=== PATIENT | male | born 2000 | race Caucasian/White ===

== ENCOUNTER → 2022-10-01 | Outpatient (CLI) | payer SELFPAY, OTHER ==
--- NOTE | 2022-10-01 08:49 | CT_ITS ---
STUDY: CT UPPER EXTREMITY WITHOUT CONTRAST. LEFT REASON FOR EXAM: Male, 22 years old. FRACTURE RADIATION DOSAGE (If Supplied By Facility): CTDIvol = ( 24.58 ) mGy, DLP = ( 511.44 ) mGycm. Individualized dose optimization techniques were used for this CT.? FLUOROSCOPY TIME (if supplied): ( ) minutes/seconds TECHNIQUE: Multiple axial images of the left upper extremity were obtained evaluate for fracture. COMPARISON: None. FINDINGS: There is a visualized large joint effusion. There is a fracture of the coronoid process. There is a comminuted fracture of the head of the radius with the fracture fragments extending laterally and inferiorly. There is visualized soft tissue edema. CT/Extremity Upper without Contra IMPRESSION: There is an acute displaced possible entrapped focus of fragments from the superior aspect of the proximal radius with the fragments are sitting below and lateral to the radius. Nondisplaced fracture of the right coronoid. There is a nonspecific sclerotic density in the ulna. Small to moderate joint effusion. Electronically Signed: Jenifer Jennings MD at 6:35 EST ,
== END | disposition home or self-care (01) ==
PROVIDERS: PCP Family Medicine; Referring Provider Student in an Organized Health Care Education/Training Program; Visit Provider Student in an Organized Health Care Education/Training Program
DX: S52.122A Displaced fracture of head of left radius, initial encounter for closed fracture (principal); X58.XXXA Exposure to other specified factors, initial encounter
CPT/HCPCS: 73200

== ENCOUNTER → 2022-11-16 | Outpatient (CLI) | payer OTHER, SELFPAY | END | disposition home or self-care (01) | PROVIDERS: PCP Family Medicine; Referring Provider Student in an Organized Health Care Education/Training Program; Visit Provider Student in an Organized Health Care Education/Training Program | DX: T84.038D Mechanical loosening of other internal prosthetic joint, subsequent encounter (principal) | CPT/HCPCS: 87070; 87075; 87077; 87186; 87205 ==

== ENCOUNTER 2022-12-15 14:17 | Observation (INO) | payer SELFPAY, OTHER ==
[2022-12-15] VITALS (10 sets, daily range): BP systolic 106–119; BP diastolic 61–84; PULSE 64–100; RESP 16–18; TEMP 36.1–36.8; O2SAT 94–100; BMI 35.4
[2022-12-15] MEDS: Lactated Ringers 1,000 ML 15 ML IV ×2 (11:12→13:30)
[2022-12-15] MEDS: Cefazolin 2 GM in 0.9% Normal Saline 100 ML IV (13:03)
[2022-12-15] MEDS: Bupivacaine Mpf 0.5% 30 ML VIAL (13:52)
--- NOTE | 2022-12-15 17:37 | OP.PCM_ITS ---
Report of Operation Date of Procedure: 12/15/22 Description of Surgical Findings:: Preoperative diagnosis: Presumed superficial left elbow radial head arthroplasty wound infection Postoperative diagnosis: Superficial left radial head arthroplasty wound infection Procedure: Left radial head arthroplasty irrigation and debridement Primary Surgeon: Gallo Merrill DO Anesthesia: General LMA Inspector Eyeglass: Haylie Olivas CRNA Estimated blood loss: 100 cc IV fluids: 1200 cc crystalloid Specimen: Superficial and deep cultures Complications: None apparent Intraoperative findings: Phlegmon like tissue found in the subcutaneous plane adjacent to a FiberWire suture used to close the joint capsule. Intra-articular fluid was sanguinous without gross purulence. Stable radial head arthroplasty Packing/drains: None Implants: None Preoperative indications: This is an otherwise healthy 22-year-old male who sustained a trauma to his left elbow approximately 2.5 months ago. He sustained a comminuted left radial head fracture. A left radial head ORIF was performed on 10/05/2022. Postoperative films at 2 weeks revealed loss of fixation and he was converted to a left radial head arthroplasty on 11/01/2022. There were no signs or symptoms of infection at time of radial head arthroplasty. At his [facility] postop visit 2 weeks postoperatively following the arthroplasty, purulence was noted around the skin sutures. He was started on oral antibiotics at that time and cultures were obtained in the office. An intra-articular arthrocentesis was performed in the office with a dry tap, avoiding the cellulitic skin. Wound cultures returned with Pseudomonas aeruginosa. He was transitioned to ciprofloxacin which appeared to improve erythema around the wound but purulence persisted. The wound slowly closed and was closed today except for a small pinpoint wound in the central portion of the surgical wound. Given the metallic hardware in the joint, and persistent wound with purulent drainage, I elected to proceed with irrigation and debridement of the left elbow after seeing the patient in the office last week. I was also concerned for continued ciprofloxacin for extended periods of time due to risk of tendon rupture. His elbow range of motion was improving over the last few weeks with physical therapy and he had very little pain. My suspicion was that the infection was superficial as he had no symptoms of a septic joint. He agreed to proceed with the irrigation and debridement. The risks of the procedure reviewed with patient at length. Risks included but were not limited to bleeding, infection, loss of life or limb, need for additional surgery, persistent pain, instability of the elbow, nonhealing wounds, stiffness, neurovascular injury. Patient expressed understanding of these risks and wished to proceed with surgery. Informed sent was obtained in the office. Description of procedure: Patient was identified in the preoperative holding area by name, medical record number, date of . The operative extremity was marked. All questions answered to patient satisfaction. At time of his procedure, patient brought the operative suite positioned supine a standard operating table. General anesthesia was induced and laryngeal mask airway placed. All bony prominences were well-padded. A hand table was attached to the patient's left side. We then prepped and draped the left upper extremity in normal, sterile orthopedic fashion with a ChloraPrep. We then performed timeout with all parties in attendance in agreement with the side, site, operation to be performed. No concerns were voiced elected proceed with surgery. 2 g Ancef was administered prior to the incision by anesthesia staff. Skin was sharply incised with a 10 blade scalpel. Superficial phlegmon was encountered adjacent to the pinpoint wound. Superficial cultures were obtained. Superfic ial hemostasis was achieved with Bovie cautery. A FiberWire suture which was used to close the joint capsule and intramuscular interval was a point of concern as redundant suture was noted. The interval was closed and healed. There was no obvious communication with the joint capsule. I closely inspected this for any signs of communicating situs. I then debrided the phlegmon tissue and any necrotic appearing tissue sharply. FiberWire suture was removed. I thoroughly irrigated the subcutaneous plane with 3 L of normal saline solution via cystoscopy tubing. I then changed my gloves and utilized new sterile instruments. I utilized the prior interval and made a small 2 cm arthrotomy to reveal the radial head implant. Bloody fluid was noted within the joint without any purulence. The radial head arthroplasty appeared stable without any signs of loosening. I then thoroughly irrigated the joint with 3 additional liters of normal saline solution via cystoscopy tubing. I then placed 0.6 g of tobramycin powder inside the joint to cover the Pseudomonas. The joint was then closed in a watertight fashion with a barbed strata fix PDS suture. Superficial layer was then addressed. I placed the remaining 0.6 g of tobramycin powder in the subcutaneous field. Skin edges were debrided sharply with 15 blade scalpel. I closed the dermis in interrupted buried fashion with 3-0 Vicryl suture. Skin was finally reapproximated with interrupted horizontal mattress 2-0 nylon suture. A sterile compression dressing was applied. Patient was placed in a simple sling. He was safely extubated in the operative suite and transferred to PACU in stable condition. Postoperative plan: Patient will be placed in observation overnight. Infectious disease has been consulted for antibiotic recommendations. I will provisionally placed the patient on IV Zosyn and tobramycin. We will follow intraoperative cultures to ensure no change in etiologic organism. He may perform range of motion activities as tolerated in hopes to regain range of motion to his left elbow. Oxycodone ordered for pain regimen. Aspirin 81 mg twice daily for DVT prophylaxis. Ice the operative site. Discharge pending recommendations from infectious disease.
[2022-12-15] MEDS: Meloxicam 15 MG Tablet PO (18:49)
[2022-12-15] MEDS: Acetaminophen 500 MG Tablet 1000 MG PO (21:37)
[2022-12-16 00:42] VITALS: BP 103/57; PULSE 76; RESP 16; TEMP 36.7; O2SAT 94
[2022-12-16 04:56] VITALS: BP 102/54; PULSE 64; RESP 16; TEMP 36.6; O2SAT 95
[2022-12-16] MEDS: Acetaminophen 500 MG Tablet 1000 MG PO (05:05)
--- NOTE | 2022-12-16 06:45 | PN.ORTHO_ITS ---
Subjective Subjective Patient seen and examined. Denies any new complaints. Reports moderate pain in the surgical site, otherwise denies new symptoms. Denies fevers, chills, nausea vomiting, chest pain or shortness of breath. Objective Data Objective Data Vital Signs: Vital Signs Temp Pulse Resp BP Pulse Ox O2 Del Method O2 Flow Rate 97.8 F 64 16 102/54 L 95 Room Air 2 12/16/22 04:56 12/16/22 04:56 12/16/22 04:56 12/16/22 04:56 12/16/22 04:56 12/16/22 04:56 12/15/22 14:15 Oxygen Flow Rate (L/min) 2 Oxygen Delivery Method Room Air Weight: 253 lb 15.983 oz Body Mass Index (BMI) 35.4 Intake & Output: Intake and Output for Last 24 Hours 12/14/22 12/15/22 12/16/22 23:59 23:59 23:59 Intake Total 1219.5 / 1219.5 384.75 / 384.75 Output Total 400 / 400 Balance 819.5 / 819.5 384.75 / 384.75 Lab / Micro Data Micro: Microbiology 12/15/22 13:39 Incision/Surgical Site Gram Stain - Final 12/15/22 13:37 Incision/Surgical Site Gram Stain - Final Physical Exam Narrative General - A&Ox3, NAD. VSS/AF. Left upper Extremity - SILT & 5/5 in radial, ulnar, musculocutaneous, axillary, and median nerve distributions. Radial, ulnar pulses 2+. Compartments soft and compressible. BCR in finger tips. Incisional dressing C/D/I. Assessment & Plan Assessment/Plan (1) Infection of left elbow: PLAN: POD#1 s/p irrigation and debridement left radial head arthroplasty - Pain control -Tobramycin and Zosyn ordered for double coverage of Pseudomonas. Cultures pending from surgery. Infectious disease has been consulted. Appreciate r ecommendations regarding oral antibiotics versus PICC line discharge requirements. -Range of motion as tolerated left upper extremity, weightbearing less than 3 pounds - DVT PPX -aspirin 81 mg twice daily, SCDs, early mobilization - Case management - D/C planning
[2022-12-16 08:50] VITALS: BP 107/54; PULSE 71; RESP 16; TEMP 36.9; O2SAT 98
[2022-12-16] MEDS: Meloxicam 15 MG Tablet PO (08:57)
--- NOTE | 2022-12-16 10:35 | CASEMGMT ---
LM LAWRENCE UNIT NURSE CM to room to meet with patient for initial transition planning/care coordination assessment. LM LAWRENCE introduced self and role at [facility]. Pt voices understanding and consents to assessment at this time. Pt resting in bed in no distress at this time. Sig other, Sindi, and pt's parents @ bedside. Pt agreeable to them being present during assessment. Pt is A/O at this time and answers all questions appropriately. Care providers, pharmacy, and demographics verified/updated at this time. PCP: Dr Calhoun Specialists: none Preferred Pharmacy:[facility] Insurance: [employer] ACC Aid Prescription Benefit: none LNOK: Parents Living Arrangements: Lives w/parents and siblings. Independent. Works full-time Transportation: Hire drivers DME: Lt arm sling HHC/SNF: No hx of either. Pt wishes to return home and states has no concerns with going home at time of discharge. Dr Donis/ID has been consulted for atb recommendations. LM LAWRENCE informed pt, if plan is for IV atb's @ discharge, LM LAWRENCE would return to talk w/pt re: options. He voices understanding. PLAN: Home. Follow for possible IV atb's @ d/c. Lucas KEITH RN, CM
--- NOTE | 2022-12-16 12:50 | CON.PCM.ID_ITS ---
Assessment & Plan Assessment/Plan (1) Infection of left elbow: PLAN: Surg cx 12/15/22 neg so far. Taken for I&D by Dr. Merrill of superficial phlegmon. Had been on po cipro for past month with good response. Hopefully with good source control now this will resolve completely. At this point, low concern for hardware involvement. Ok for home with 10 more days po cipro and ortho followup. Wrote rx. ID followup as needed, will continue to follow cx results. Will follow, thank you, d/w immigration case manager HPI Consult Data Date of Consult: 12/16/22 HPI Narrative Reason for Consultation: surg site infection HPI Narrative: ELIZABETH DIAZ, is a 22 M who had L radial head fracture early September. Taken for ORIF 10/05/22. Converted to L radial head arthroplasty 11/01. 2 weeks post op had swelling and drainage, started on po abx, then changed to po cipro once cx showed PsA. Since then, arm is much improved except for tiny residual opening. Has remained on cipro, no diarrhea, no peripheral neuropathy, no new joint/tendon pain. Taken back to OR 12/25/[address] Merrill for I&D of superficial infection around retained suture. On zosyn/tobra here, feeling fine, wants to go home. Full ROS performed and neg except as noted above. PFSH Medical History Smoker Home Medications ciprofloxacin HCl 500 mg tablet (Cipro) 500 mg PO Q12H #20 tabs 12/16/22 [Rx Last Taken Unknown] Allergy/AdvReac Type Severity Reaction Status Date / Time No Known Allergies Allergy Verified 12/15/22 11:01 Surgical History (Updated 12/14/22 @ 13:18 by Citlalli Robledo) History of open reduction and internal fixation (ORIF) procedure History of removal of retained hardware Social History Smoking Status: Current some day smoker tobacco type: cigarettes Physical Exam Const alert, oriented x3 and no apparent distress General Appearance: cooperative HEENT normocephalic and head/scalp atraumatic Eyes PERRL and EOMs intact bilaterally Neck supple and No nodes Resp normal air movement and clear to auscultation bilaterally Cardio regular rate and regular rhythm GI soft to palpation, non-tender and non-distended Extremity General Extremity: Negative for edema Skin Skin Narrative: RUE wrapped Neuro CN's II-XII intact bilaterally Lab / Micro Data Attestation: I reviewed the patient's lab results. Micro: Microbiology 12/15/22 13:39 Incision/Surgical Site Gram Stain - Final 12/15/22 13:39 Incision/Surgical Site Wound Culture - Preliminary No growth-Final to follow 12/15/22 13:37 Incision/Surgical Site Gram Stain - Final 12/15/22 13:37 Incision/Surgical Site Wound Culture - Preliminary No growth-Final to follow
--- NOTE | 2022-12-16 13:02 | CASEMGMT ---
Per ID, pt to dc home on po antibiotics.
--- NOTE | 2022-12-16 13:06 | DS.PCM_ITS ---
Providers Date of Admission: 12/15/22 Primary Care Physician: Dr. Pieter Calhoun, Consultations 12/15/22 14:18 Consult: Infectious Disease Routine Consulting Provider: Leonardo Donis Reason for Consult: Left radial head replacement superficial infection EMERGENT Consult: No MD Notified: Yes Date Notified: 12/15/22 Time Notified: 15:10 Method of Notification: Text Reason For Visit: IRRIGATION AND DEBRIDEMENT LEFT ELBOW Diagnosis Discharge Diagnosis (1) Infection of left elbow: Status: Acute Code(s): M00.9 - Pyogenic arthritis, unspecified Plan: POD#1 s/p irrigation and debridement left radial head arthroplasty - Pain control -Tobramycin and Zosyn ordered for double coverage of Pseudomonas. Cultures pending from surgery. Infectious disease has been consulted. Appreciate recommendations regarding oral antibiotics versus PICC line discharge requir ements. -Range of motion as tolerated left upper extremity, weightbearing less than 3 pounds - DVT PPX -aspirin 81 mg twice daily, SCDs, early mobilization - Case management - D/C planning Medications at Discharge Home Medications aspirin 81 mg chewable tablet 81 mg PO BID 28 days #56 tabs 12/16/22 ciprofloxacin HCl 500 mg tablet (Cipro) 500 mg PO Q12H #20 tabs 12/16/22 Hospital Course Summary of Care Provided Minutes Spent on Discharge: 15 Hospital Course: This is a 22-year-old male with a left elbow infection after a left radial head arthroplasty performed approximately 6 weeks ago. Wound care and oral antibio tics slowly improve the infection however given the concern for possible deep infection, he was taken to surgery 12/15/22 for an irrigation and debridement. Intraoperative findings were consistent with a superficial infection. He is placed in observation overnight for IV antibiotics and an infectious disease consultation was placed. Infectious disease recommended oral antibiotics upon discharge. He did well with surgery is able to be safely discharged home on oral ciprofloxacin on postoperative day #1. No medical or surgical complications were encountered throughout the stay. Physical Exam Narrative General - A&Ox3, NAD. VSS/AF. Left upper Extremity - SILT & 5/5 in radial, ulnar, musculocutaneous, axillary, and median nerve distributions. Radial, ulnar pulses 2+. Compartments soft and compressible. BCR in finger tips. Incisional dressing C/D/I. Weight / BMI Weight Weight: 253 lb 15.983 oz Body Mass Index (BMI) 35.4 ABG / Lab / Microbiology Data Microbiology: Microbiology 12/15/22 13:39 Incision/Surgical Site Gram Stain - Final 12/15/22 13:39 Incision/Surgical Site Wound Culture - Preliminary No growth-Final to follow 12/15/22 13:37 Incision/Surgical Site Gram Stain - Final 12/15/22 13:37 Incision/Surgical Site Wound Culture - Preliminary No growth-Final to follow Meaningful Use Info Meaningful Use Diagnoses (Choose all that apply): None applicable Discharge Plan Admission Admit Date/Time: 12/15/22 14:17 Primary Reason for Your Visit: Left elbow surgery Attending Provider: Gallo Merrill Primary Care Provider: Pieter Calhoun Consulting Providers: Leonardo Donis Instructions Additional Instructions / Restrictions: Range of motion as tolerated left elbow Ok to remove surgical dressing 12/17/22. Dry sterile dressing changes daily. No showering until 12/19/22 Discharge Orders/Prescriptions Prescriptions: New ciprofloxacin HCl [Cipro] 500 mg tablet 500 mg PO Q12H Qty: 20 0RF aspirin 81 mg Tablet,Chewable 81 mg PO BID 28 Days Qty: 56 0RF Referrals / Follow Up: Pieter Calhoun DO [Primary Care Provider] - Gallo Merrill DO [Med Staff - Active Staff] - 12/23/22 Disposition Disposition (needs filled in before D/C Order can be placed): Home, Self Care
[2022-12-16 14:59] VITALS: BP 101/55; PULSE 78; RESP 16; TEMP 36.8; O2SAT 97
== END 2022-12-16 15:14 | disposition home or self-care (01) ==
LOC: SDC 14:43 → MS3 14:43
PROVIDERS: Admitting Provider Student in an Organized Health Care Education/Training Program; PCP Family Medicine; Referring Provider Student in an Organized Health Care Education/Training Program; Visit Provider Student in an Organized Health Care Education/Training Program
PROC: (CPT 23931; principal; 2022-12-15 12:30)
DX: T84.59XA Infection and inflammatory reaction due to other internal joint prosthesis, initial encounter (principal); M00.822 Arthritis due to other bacteria, left elbow; S52.122D Displaced fracture of head of left radius, subsequent encounter for closed fracture with routine healing; F17.210 Nicotine dependence, cigarettes, uncomplicated; Y79.2 Prosthetic and other implants, materials and accessory orthopedic devices associated with adverse incidents; Z96.622 Presence of left artificial elbow joint; W19.XXXD Unspecified fall, subsequent encounter; B96.5 Pseudomonas (aeruginosa) (mallei) (pseudomallei) as the cause of diseases classified elsewhere
CPT/HCPCS: 23931; 01710; 87070; 87075; 87205; 96365; 96366; 99221; 99252; J7050; J7120; G0378; G0463; J2405; J3260